=== PATIENT | female | born 1995 | race Caucasian/White ===

== ENCOUNTER 2019-12-20 13:57 | Emergency (ER) | payer OTHER ==
[~2019-12-20] VITALS: Ht 149.9 cm; Wt 58.9 kg
[2019-12-20 14:14] VITALS: BP 114/82
== END 2019-12-20 14:58 | disposition home or self-care (01) ==
LOC: ER 14:17
DX: B37.3 Candidiasis of vulva and vagina (principal)
CPT/HCPCS: 99281; 99283